=== PATIENT | female | born 2000 | race Caucasian/White ===

== ENCOUNTER 2019-05-22 09:22 | Outpatient (CLI) | payer MEDICARE, MEDICAID, SELFPAY ==
--- NOTE | 2019-05-22 | XR_ITS ---
WS: [id number] RIGHT SHOULDER: 3 VIEW(S) TECHNIQUE: Internal and external rotation with Y view. HISTORY: SHOULDER PAIN RIGHT COMPARISON: None available. No fracture or dislocation or soft tissue abnormality. Glenohumeral and AC joints are unremarkable. XR/XR shoulder RT min 2V* [id number] IMPRESSION: Normal RIGHT shoulder.
--- NOTE | 2019-05-22 | XR_ITS ---
WS: [id number] RIGHT RIBS, MULTIPLE VIEWS HISTORY: SHOULDER PAIN RIGHT COMPARISON: None available. Ribs: No rib fractures or bone destruction identified. Lungs and mediastinum: Lungs clear on the RIGHT. Mild thoracolumbar scoliosis. XR/XR ribs RT 2V* [id number] IMPRESSION: No RIGHT rib fractures identified.
== END 2019-05-22 09:23 | disposition home or self-care (01) ==
LOC: RADOUTREAD 11:31
PROVIDERS: Family Provider Physician Assistant; Visit Provider Physician Assistant
DX: M25.511 Pain in right shoulder (principal)

== ENCOUNTER 2019-05-29 07:36 | Outpatient (RCR) | payer MEDICARE, MEDICAID, SELFPAY | END 2019-06-13 23:59 | disposition home or self-care (01) | LOC: SPT 07:36 | PROVIDERS: Family Provider Physician Assistant; PCP Physician Assistant; Visit Provider Physician Assistant | DX: M25.511 Pain in right shoulder (principal) | CPT/HCPCS: 97110; 97161 ==

== ENCOUNTER 2019-06-14 06:00 | Outpatient (RCR) | payer MEDICARE, MEDICAID, SELFPAY | END 2019-07-12 23:59 | disposition home or self-care (01) | LOC: SPT 06:00 | PROVIDERS: Family Provider Physician Assistant; PCP Physician Assistant; Visit Provider Physician Assistant | DX: M25.511 Pain in right shoulder (principal) | CPT/HCPCS: 97110 ==

== ENCOUNTER 2022-06-16 13:49 | Emergency (ER) | payer MEDICARE, MEDICAID, SELFPAY ==
--- NOTE | 2022-06-16 13:52 | XR_ITS ---
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 There are no new fractures or dislocations. The left hip is intact. The bones of th e pelvis, thigh and knee are osteoporotic. There is an intramedullary amos in the proximal left tibia. XR/XR femur LT min 2V* [id number] Impression: Stable internal fixation of proximal left femoral fracture.
[2022-06-16 13:59] VITALS: BP 130/86; PULSE 97; RESP 17; TEMP 36.6; O2SAT 100; BMI 19.9
[2022-06-16 14:02] VITALS: BP 130/86; O2SAT 100
--- NOTE | 2022-06-16 14:19 | ED_ITS ---
HPI - Fall General: Chief Complaint: Fall Stated Complaint: FALL/ POSSIBLE BROKEN FEMUR Time Seen by Provider: 06/16/22 13:50 Source: patient Mode of arrival: EMS History of Present Illness: 21-year-old female who presents to the emergency room after a fall on ice. She is complaining of left femur pain. She has a history of osteogenesis imperfecta. She has previously had a amos in the left femur and left tibia. She did not strike her head anywhere else and there was no loss of consciousness. She denies any other injuries she said she felt a popping sensation in her left leg. MD complaint: fall Onset (ago): minute(s) Fall from: standing Place fall occurred: street Loss of consciousness: None Context: tripped/slipped Associated symptoms-after fall: Denies abdominal pain, chest pain, confusion, difficulty walking, headache(s), lightheadedness, neck pain, numbness, short of breath, vertigo or weakness Review of Systems Card: Denies: chest pain or lightheadedness Resp: Denies: dyspnea, productive cough or non-productive cough GI: Denies: abdominal pain Musc: Reports: extremity pain; Denies: neck pain or back pain Neuro: Denies: headache(s), difficulty walking, vertigo or confusion PFSH ED PFSH: Medical History Contraceptive management Depression Osteogenesis imperfecta Surgical History H/O fracture of leg multiple surgeries on both legs due to OI H/O oral surgery Family History Grandmother Heart disease Paternal grandmother Diabetes Paternal grandmother Hypertension Paternal grandmother Cancer Paternal grandmother-- colon cancer Grandfather Heart disease Paternal grandfather Hyperlipidemia Paternal grandfather Hypertension Paternal grandfather Stroke Paternal grandmother Cancer PGF-- prostate cancer Father Hyperlipidemia Mother Hyperlipidemia Social History Smoking and tobacco status: never smoked Alcohol intake: current Physical Exam Const: NUTRITIONAL APPEARANCE: thin ORIENTATION/CONSCIOUSNESS: Yes awake, Yes oriented to person, Yes oriented to place and Yes oriented to time HENMT: COMMON NORMALS: normocephalic and atraumatic HEAD & SCALP: normocephalic and atraumatic Resp: COMMON NORMALS: normal respiratory effort, No retractions, No use of accessory muscles and clear to auscultation bilaterally AUSCULTATION: clear to auscultation bilaterally Cardio: COMMON NORMALS: regular rate, regular rhythm and No murmurs present (Cardio) RATE: regular rate RHYTHM: regular rhythm GI: COMMON NORMALS: Soft to palpation and No hepatosplenomegaly present AUSCULTATION: Yes normoactive bowel sounds PALPATION: Yes Soft to palpation, No Tenderness to palpation present (GI), No Guarding due to palpation present (GI) and Yes No hepatosplenomegaly present Extremity: COMMON NORMALS: normal to inspection, capillary refill normal, no clubbing, cyanosis or edema, no calf tenderness and no pedal edema Neuro: SENSORIUM/ORIENTATION: Yes oriented to person, Yes oriented to place and Yes oriented to time Skin: COMMON NORMALS: no rashes or lesions noted GENERAL SKIN EXAM: no rashes or lesions noted Course Vital Signs: Vital signs: Vital Signs Temperature 97.9 F 06/16/22 13:59 Pulse Rate 97 06/16/22 13:59 Respiratory Rate 17 06/16/22 13:59 Blood Pressure 132/80 06/16/22 15:00 Pulse Oximetry 100 06/16/22 15:00 Oxygen Delivery Me thod 06/16/22 13:59 MDM - Fall Medical Decision Making Patient a fall with complaint of feeling a pop and having some pain in the mid to proximal thigh on the left. She has osteogenesis imperfecta and has a previous fracture of the femur. We do not have any old films to compare to except back from 2009 there is a fracture in that area at the time however she was 8 years old at times is difficult to be entirely sure that same fracture does appear to be the same. Reviewed the films with Dr. Guardado and with Dr. Ying they felt the same. In any event with Dr. Ying's opinion there was really nothing else that could be done she has a amos in place already so it splinted better than anything an external splint could do. Since she is complaining of pain recommend that she be nonweightbearing on the leg and follow-up with her orthopedist next week. Other possibilities to be soft tissue tears or disruption she has a lot of scar tissue in the lateral thigh on the left from her previous surgeries related to fracture and. Discussed with the patient she may very well have a occult fracture around that amos however with the amos in place there is really nothing else that would need to be done other than allow it to heal. I would prefer she was nonweightbearing until she is evaluated by her orthopedist. They may wish to get nuclear bone scan. Hesitant to do a CT here even with improved technology and the CTs now its not likely that we would get a clear picture of the femur with a amos in place there can still be some scatter artifact. If there is a occult fracture treatment will be rest allowed to heal Dr. Hinojosa did not feel that exchanging the amos would be of any benefit and probably be detrimental exposing her to a surgery that she would have little benefit from at this time. Discussed with the patient if she does have an injury that is not visible on the plain film, it is possible he could progress. But this is why I am asking her to be nonweightbearing for now until she sees her orthopedist. She does have a wheelchair at home I recommend that she use that until she is able to see her orthopedist. Return if she has further problems pain medications given. Greater than 60 minutes spent examining the patient documenting the visit, consulting with Dr. Ying and Dr. Guardado, reviewing results and old records, and discussing results with the patient. Medical Records I reviewed the patient's medical records. Lab Data I reviewed the patient's lab results. Radiology Impressions Femur X-Ray 06/16/22 13:52 Impression: Stable internal fixation of proximal left femoral fracture. Discharge Plan Discharge Patient Disposition: Home Clinical Impression: Osteogenesis imperfecta, Acute leg pain Condition: Stable Prescriptions: New hydrocodone-acetaminophen 5-325 mg tablet 1 tab PO Q6H PRN (Reason: pain) Qty: 20 0RF No Action Mirena 20 mcg/24 hours (8 yrs) 52 mg Intrauterine Device See Rx Instructions .ROUTE .COMPLEX Rx Instructions: intrauterinely as directed calcium citrate 250 mg calcium Tablet 500 mg PO DAILY Vitamin D3 50 mcg (2,000 unit) Capsule 50 mcg PO DAILY Discharge Orders: Discharge ED (Routine); Ordered 06/16/22 Ordered By: Shahid Blue Referrals: Josefina Sanches PA [Physician] - Patient Instructions: Opioid Safety, Pain Management Activity Restrictions/Additional Instructions: You were seen today after a fall. There is a small fracture that appears to correlate to a previous fracture from 2009 in the left mid proximal femur. You already have a femoral amos the entire length of the femur that bridges this region. It suspected this correlates to a previous old fracture as mentioned before, with the amos across it, it provides excellent splinting and would be the treatment if this was a new fracture and you did not have a amos already in place. Because of your osteogenesis imperfecta and that you are still having pain today recommend that you are nonweightbearing for the next several days and follow-up with your regular orthopedist for further evaluation. Your regular orthopedist will have other previous imaging to compare to and can determine if you need more advanced imaging to further evaluate if you are still having pain at the time of follow-up. Please minimize weightbearing as much as possible until you follow-up with your regular orthopedist. Coding Level of Care Code ED [employer] Exam Detailed
[2022-06-16 14:30] VITALS: BP 132/80; O2SAT 100
--- NOTE | 2022-06-16 14:37 | PC.PHAR ---
pt states she takes care of her own meds-pt states its been 2 years since she took prescription medications-pt states she is only taking the medications entered
[2022-06-16 15:00] VITALS: BP 132/80; O2SAT 100
== END 2022-06-16 15:50 | disposition home or self-care (01) ==
PROVIDERS: Emergency Provider Family Medicine
DX: Q78.0 Osteogenesis imperfecta (principal); M79.652 Pain in left thigh
CPT/HCPCS: 73552; 99283